=== PATIENT | female | born 1950 | race Caucasian/White ===

== ENCOUNTER → 2024-12-17 12:28 | Outpatient (REF) | payer MEDICARE, SELFPAY | LOC: RCS 12:28 | PROVIDERS: ATTENDING PHYSICIAN Hospitalist | DX: R00.2 Palpitations (principal) | CPT/HCPCS: 93225; 93226 ==

== ENCOUNTER → 2025-01-23 08:58 | Outpatient (REF) | payer MEDICARE, SELFPAY | LOC: RCS 08:58 | PROVIDERS: ATTENDING PHYSICIAN Student in an Organized Health Care Education/Training Program; FAMILY PHYSICIAN Hospitalist | DX: R00.2 Palpitations (principal); R06.09 Other forms of dyspnea | CPT/HCPCS: 93306 ==

== ENCOUNTER 2025-04-18 14:45 | Outpatient (RCR) | payer MEDICARE, SELFPAY | END 2025-04-18 23:59 | disposition home or self-care (01) | LOC: PURB 14:45 | PROVIDERS: ATTENDING PHYSICIAN Internal Medicine Critical Care Medicine; FAMILY PHYSICIAN Hospitalist | DX: J84.9 Interstitial pulmonary disease, unspecified (principal) | CPT/HCPCS: G0237; G0239 ==

== ENCOUNTER 2025-05-09 14:45 | Outpatient (RCR) | payer MEDICARE, SELFPAY | END 2025-05-09 23:59 | disposition home or self-care (01) | LOC: PURB 14:45 | PROVIDERS: ATTENDING PHYSICIAN Internal Medicine Critical Care Medicine; FAMILY PHYSICIAN Hospitalist | DX: J84.9 Interstitial pulmonary disease, unspecified (principal) | CPT/HCPCS: G0239 ==

== ENCOUNTER 2025-05-30 14:45 | Outpatient (RCR) | payer MEDICARE, SELFPAY | END 2025-05-30 23:59 | disposition home or self-care (01) | LOC: PURB 14:45 | PROVIDERS: ATTENDING PHYSICIAN Internal Medicine Critical Care Medicine; FAMILY PHYSICIAN Hospitalist | DX: J84.9 Interstitial pulmonary disease, unspecified (principal) | CPT/HCPCS: G0239 ==